=== PATIENT | female | born 2000 | race Two or more races ===

== ENCOUNTER 2024-04-27 10:21 | Outpatient (AMB) | payer MEDICAID, SELFPAY ==
--- NOTE | 2024-04-27 10:21 | ACNOTE_ITS ---
Allergies/Meds Allergies & Medications Allergies No Known Allergies Allergy (Verified 06/11/24 13:14) Medication Reconciliation buspirone 5 mg tablet 5 mg PO BID PRN anxiety #30 tabs 02/14/24 [Rx Confirmed 05/04/24] metoclopramide HCl 5 mg tablet (Reglan) 5 mg PO QDAY PRN nausea and vomiting #14 tabs 02/14/24 [Rx Confirmed 05/04/24] blood-glucose sensor (FreeStyle Alfred 3 Sensor device) #2 ea 04/27/24 [Rx Confirmed 05/04/24] metformin 1,000 mg tablet,extended release 24hr (osmotic) 1,000 mg PO BID #60 tabs 04/27/24 [Rx Confirmed 05/04/24] semaglutide 0.25 mg or 0.5 mg (2 mg/3 mL) subcutaneous pen injector 0.5 mg (0.736 mL) subcut QWEEK #6 mL 06/01/24 [Rx Confirmed 06/11/24] MA Intake Visit Data Collection New Patient or Established: Established Patient (seen at [facility] within 3 years) Seen by Clinical Staff ONLY (RN/MA): No Pain Present Currently: No Pain scale:: 0 Pain Scale Used: Sanchez-Nava/Numerical PCP or OBGYN visit in last 3 months: No Do You Feel Safe at Home: Yes Authorities Contacted: N/A Smoking Status Smoking Status: Never smoker For Televisit only Telemed Video/Phone Visit: Yes Verbal consent obtained for Telemed visit?: Yes Verbal Consent witness name: DANIELLE Telemed Video/Phone visit w/Clinical Staff: 21-30 min Immunization / Flu Flu Vaccine in the Last 12 Months: No Flu Vaccine Exclusion Criteria: No Exclusion Criteria Past Medical History Past Medical History NEUROLOGIC: Negative Neurological Disorders or Seizures CARDIAC: Negative Cardiac Disorders or Congestive Heart Failure RESPIRATORY: Negative Chronic Obstructive Pulmonary Disease (COPD) GASTROINTESTINAL: Negative Gastrointestinal Disorders GENITOURINARY: Negative Genitourinary Disorders or Renal Disease REPRODUCTIVE: Negative Pelvic Inflammatory Disease or Previous Pregnancies ENDOCRINE: Positive Endocrine Disorders; Negative Diabetes Mellitus Type 1 or Diabetes Mellitus Type 2 HEMATOLOGIC: Negative Blood Disorders or Anemia OTHER HISTORY: Negative Autoimmune Disease, Falls, Blood Transfusions, Blood Transfusion Reaction, Anesthesia Reactions or Cancer Family History FAMILY HISTORY: Negative Family Psychiatric Problems, Family Respiratory Disorders, Family Cardiac Disorders, Family Gastrointestinal Problems, Family Cancer, Family Surgery or Family Anesthesia Reaction Social History SMOKING STATUS: Smoking status: Never smoker ALCOHOL: Alcohol Intake: Current ALCOHOL FREQUENCY: Alcohol Intake Frequency: holidays/special occasions only HOUSING: Housing: House LIVES WITH: Lives With: Family and Significant Other Patient Portal Questionaires Social History Living Situation History Housing: House Housing Other:: Pt lives w/parents and SO Tobacco History Smoking Status: Never smoker Alcohol History Alcohol Intake: Current Alcohol Intake Frequency: holidays/special occasions only Domestic Abuse History Do You Feel Safe at Home: Yes Review of Systems Report any current symptoms Only answer those that you have currently: Past Medical History Past Medical History Have you ever been diagnosed with any of the following: Neurological Problems Seizures: No Cardiology Problems Congestive Heart Failure: No Respiratory Problems Chronic Obstructive Pulmonary Disease (COPD): No Genital/Urinary Problems Renal Disease: No Reproductive Problems Pelvic Inflammatory Disease: No Previous Pregnancies: No Endocrine Problems Diabetes Mellitus Type 1: No Diabetes Mellitus Type 2: No Blood Problems Anemia: No Other Problems Autoimmune Disease: No Falls: No Blood Transfusions: No Blood Transfusion Reaction: No Anesthesia Reactions: No Cancer: No History of Present Illness HPI Narrative 12/02/2023: This 23-year-old obese female being presented to the office with elevated blood sugar seen on glucometer around 240s. Patient also reported having occipital headaches and noticed elevated blood pressure at home around SBP 140s. Patient reported that she had GDM during her first 1year 8 months ago. Patient last menstrual cycle was 2 weeks ago. She recently started getting irregular menstrual period however does get menstruation every month. Ordered CBC, CMP, A1c and urinalysis. Prescribed metformin 500 mg daily and advised her to do urine test [beta-hCG qualitative] to rule out active . Was advised to start metformin only if she is not . Patient was advised to follow-up December 22. She was also advised to start exercise and take low carb consistent diet. She also have strong family history of diabetes. 12/16/2023: Patient came for follow-up for her lab results. Her A1c came 8 and blood sugars were elevated above 200. Thyroid functions were not drawn before they were repeated. Urine test was negative. UA showed glucosuria only. It was recommended to continue metformin 500 mg twice a day as patient has been tolerating it well. Encouraged on exercise and diet with low-fat consult. Patient will be follow-up on [place] 20 and in case of no weight loss considerable option was to start Rybelsus. Patient has been having irregular menstrual period from past 4-5 months. Pelvic ultrasound ordered. Will follow- up on thyroid functions. To rule out type 1 diabetes C-peptide test was ordered. Will follow-up on results. 02/14/2024: Patient came for follow-up. She reports that she has been having blood sugars in 180s after meals however had no weight loss reported in fact she had weight gain of 1 pound after using metformin for more than a month. She stated that her menstrual cycle has improved and has been regular now. She has been having personal stressor due to issues related to custody for her daughter and has been feeling anxious more than usual with sleep disturbances. [facility] revealed FT4 1.22 and TSH 0.731 and C-peptide 6.5 per 12/23/2023. Currently she weigh 220 lbs. plan is to uptitrate dose of metformin to 1000 mg twice a day, add buspirone 5 mg twice a day as needed for anxiety and added Rybelsus 3 mg once a day for weight loss. 04/27/2024: Patient new to me. 23 F with obesity and DMT2. Currently on metformin 1000mg BID. Has issues with ozempic prescriptions. Patient FBG is in he 170-180s. 05/04/2024: Patient had gestational diabetes and recently found out that she is diabetic. Patient also has family Hx with diabetes. She is currently on Metformin 1000 mg BID and started Ozempic x3 days ago on 05/01/24. Patient states that her fasting sugars in the 180's in morning and post-prandial are close to 200. Patient did not complete her lab work on last visit. Today she would like to know how to use the [employer] Alfred 3 GCM. The sensor was put on, patient was educated on how to use it including the kathrin. New lab for CBC, CMP and A1C were filled to be completed before next visit. No other concerns at this time. Review of Systems Review of Systems Systems Reviewed: All systems reviewed, normal except as documented Objective/Exam Narrative Physical exam: Telehealth visit. Able to speak full sentences. Assessment & Plan Diagnosis / Problem List (1) Diabetes: Status: Acute Assessment & Plan: unknown A1c FBG 180s Plan: -cont metformin 1000mg BID -start ozepmpic -CGM sent -A1c and labs orderd (2) Obesity (BMI 30-39.9): Status: Acute Assessment & Plan: see above Additional Assessment Attending note: I, Jase Sanon MD, attest that I was physically present for the rae portions of the service completed via telehealth, and I reviewed and discussed the case with the resident and agree with the resident's plans of care as documented above. Follow-up visit. Diabetes self-care reviewed including diet, exercise, footcare, eye care. Did titrate dose of metformin up to 1000 mg twice daily. Has not yet been able to obtain Ozempic. Fasting blood glucose levels remain high. Today we will order a CGM and attempt to get Ozempic approved. Repeat labs ordered. Jase Sanon MD Physician Billing Established Patient Established Patient: E/M Level 2-CPT 59104 Office Procedures [facility] Level of Care Nursing/Assessment Patient Status: Established Patient Nursing Assessment/Reassessment: Medication Reconciliation and Update PMH in EMR Coordination of Care: Complex Care and Chronic Disease 1-5, Education Complex Pt/Fam and Staff clarify orders Established Patient Charge Established Patient Point Assignment: 70 Telehealth Telemed Phone/Video with patient at home & Dr,PA,FISH SALTER: Yes
== END 2024-04-27 10:53 | disposition home or self-care (01) ==
LOC: HODAHC 10:21
PROVIDERS: PCP Student in an Organized Health Care Education/Training Program; Referring Provider Student in an Organized Health Care Education/Training Program; Supervising Provider Internal Medicine; Visit Provider Student in an Organized Health Care Education/Training Program
DX: E11.9 Type 2 diabetes mellitus without complications (principal); Z79.84 Long term (current) use of oral hypoglycemic drugs; E66.9 Obesity, unspecified
CPT/HCPCS: 99212; G0463

== ENCOUNTER 2024-06-01 14:28 | Outpatient (AMB) | payer MEDICAID, SELFPAY ==
[2024-06-01 14:22] VITALS: BP 115/73; PULSE 83; RESP 18; TEMP 36.2; O2SAT 98; BMI 37.6
--- NOTE | 2024-06-01 14:22 | PD.RESCLINIC ---
Vital Signs 06/01/24 14:22 Height 1.6 m Height Method Stated Weight 96.332 kg Weight Measurement Method Standing Scale BMI 37.6 BP 115/73 Blood Pressure Source Automatic Cuff Blood Pressure Location Left Upper Arm Position Sitting Respiration 18 Pulse 83 Pulse Source Monitor Temp 97.1 F Temp Source Oral Pulse Oximetry (%) 98 Oxygen Delivery Method Room Air Allergies/Meds Allergies & Medications Allergies No Known Allergies Allergy (Verified 06/11/24 13:14) Medication Reconciliation buspirone 5 mg tablet 5 mg PO BID PRN anxiety #30 tabs 02/14/24 [Rx Confirmed 05/04/24] metoclopramide HCl 5 mg tablet (Reglan) 5 mg PO QDAY PRN nausea and vomiting #14 tabs 02/14/24 [Rx Confirmed 05/04/24] blood-glucose sensor (FreeStyle Alfred 3 Sensor device) #2 ea 04/27/24 [Rx Confirmed 05/04/24] metformin 1,000 mg tablet,extended release 24hr (osmotic) 1,000 mg PO BID #60 tabs 04/27/24 [Rx Confirmed 05/04/24] semaglutide 0.25 mg or 0.5 mg (2 mg/3 mL) subcutaneous pen injector 0.5 mg (0.736 mL) subcut QWEEK #6 mL 06/01/24 [Rx Confirmed 06/11/24] MA Intake Visit Data Collection New Patient or Established: Established Patient (seen at [facility] within 3 years) Seen by Clinical Staff ONLY (RN/MA): No Pain Present Currently: No Pain scale:: 0 Traffic Officer Required: No PCP or OBGYN visit in last 3 months: Yes Do You Feel Safe at Home: Yes Authorities Contacted: N/A Smoking Status Smoking Status: Never smoker Immunization / Flu Flu Vaccine in the Last 12 Months: No Flu Vaccine Exclusion Criteria: Refused by Patient Past Medical History Past Medical History NEUROLOGIC: Negative Neurological Disorders or Seizures CARDIAC: Negative Cardiac Disorders or Congestive Heart Failure RESPIRATORY: Negative Chronic Obstructive Pulmonary Disease (COPD) GASTROINTESTINAL: Negative Gastrointestinal Disorders GENITOURINARY: Negative Genitourinary Disorders or Renal Disease REPRODUCTIVE: Negative Pelvic Inflammatory Disease or Previous Pregnancies ENDOCRINE: Positive Endocrine Disorders; Negative Diabetes Mellitus Type 1 or Diabetes Mellitus Type 2 HEMATOLOGIC: Negative Blood Disorders or Anemia OTHER HISTORY: Negative Autoimmune Disease, Falls, Blood Transfusions, Blood Transfusion Reaction, Anesthesia Reactions or Cancer Family History FAMILY HISTORY: Negative Family Psychiatric Problems, Family Respiratory Disorders, Family Cardiac Disorders, Family Gastrointestinal Problems, Family Cancer, Family Surgery or Family Anesthesia Reaction Social History SMOKING STATUS: Smoking status: Never smoker ALCOHOL: Alcohol Intake: Current ALCOHOL FREQUENCY: Alcohol Intake Frequency: holidays/special occasions only HOUSING: Housing: House LIVES WITH: Lives With: Family and Significant Other Patient Portal Questionaires Social History Living Situation History Housing: House Housing Other:: Pt lives w/parents and SO Tobacco History Smoking Status: Never smoker Alcohol History Alcohol Intake: Current Alcohol Intake Frequency: holidays/special occasions only Domestic Abuse History Do You Feel Safe at Home: Yes Review of Systems Report any current symptoms Only answer those that you have currently: Past Medical History Past Medical History Have you ever been diagnosed with any of the following: Neurological Problems Seizures: No Cardiology Problems Congestive Heart Failure: No Respiratory Problems Chronic Obstructive Pulmonary Disease (COPD): No Genital/Urinary Problems Renal Disease: No Reproductive Problems Pelvic Inflammatory Disease: No Previous Pregnancies: No Endocrine Problems Diabetes Mellitus Type 1: No Diabetes Mellitus Type 2: No Blood Problems Anemia: No Other Problems Autoimmune Disease: No Falls: No Blood Transfusions: No Blood Transfusion Reaction: No Anesthesia Reactions: No Cancer: No History of Present Illness HPI Narrative 12/02/2023: This 23-year-old obese female being presented to the office with elevated blood sugar seen on glucometer around 240s. Patient also reported having occipital headaches and noticed elevated blood pressure at home around SBP 140s. Patient reported that she had GDM during her first 1year 8 months ago. Patient last menstrual cycle was 2 weeks ago. She recently started getting irregular menstrual period however does get menstruation every month. Ordered CBC, CMP, A1c and urinalysis. Prescribed metformin 500 mg daily and advised her to do urine test [beta-hCG qualitative] to rule out active . Was advised to start metformin only if she is not . Patient was advised to follow-up December 22. She was also advised to start exercise and take low carb consistent diet. She also have strong family history of diabetes. 12/16/2023: Patient came for follow-up for her lab results. Her A1c came 8 and blood sugars were elevated above 200. Thyroid functions were not drawn before they were repeated. Urine test was negative. UA showed glucosuria only. It was recommended to continue metformin 500 mg twice a day as patient has been tolerating it well. Encouraged on exercise and diet with low-fat consult. Patient will be follow-up on February 13 and in case of no weight loss considerable option was to start Rybelsus. Patient has been having irregular menstrual period from past 4-5 months. Pelvic ultrasound ordered. Will follow-up on thyroid functions. To rule out type 1 diabetes C-peptide test was ordered. Will follow-up on results. 02/14/2024: Patient came for follow-up. She reports that she has been having blood sugars in 180s after meals however had no weight loss reported in fact she had weight gain of 1 pound after using metformin for more than a month. She stated that her menstrual cycle has improved and has been regular now. She has been having personal stressor due to issues related to custody for her daughter and has been feeling anxious more than usual with sleep disturbances. [facility] revealed FT4 1.22 and TSH 0.731 and C-peptide 6.5 per 12/23/2023. Currently she weigh 220 lbs. plan is to uptitrate dose of metformin to 1000 mg twice a day, add buspirone 5 mg twice a day as needed for anxiety and added Rybelsus 3 mg once a day for weight loss. 05/04/2024: Patient had gestational diabetes and recently found out that she is diabetic. Patient also has family Hx with diabetes. She is currently on Metformin 1000 mg BID and started Ozempic x3 days ago on 05/01/24. Patient states that her fasting sugars in the 180's in morning and post-prandial are close to 200. Patient did not complete her lab work on last visit. Today she would like to know how to use the [employer] Alfred 3 GCM. The sensor was put on, patient was educated on how to use it including the kathrin. New lab for CBC, CMP and A1C were filled to be completed before next visit. No other concerns at this time. 06/01/2024: Patient presented to the clinic for f/u. Patient is feeling well. Patient wanted to discussed medications options for diabetes and weightloss. Denies any complaints at this time. Review of Systems Review of Systems Systems Reviewed: All systems reviewed, normal except as documented Objective/Exam Narrative Physical exam: Constitutional: AOx3, able to speak full sentences HEENT: NC/AT, PERRLA, oral mucosa moist, neck supple CVS: RRR, S1-S2 present, no murmurs RESP: CTAB GI: non distended, non tender to palpation, NBS MSK: full ROM, no peripheral edema, peripheral pulses present Skin: warm and dry, no rashes Neuro: district branch manager II-XII grossly intact. Sensation grossly intact. Assessment & Plan Diagnosis / Problem List (1) Obesity (BMI 30-39.9): Status: Acute Assessment & Plan: stable Plan: -ozempic dosage increased to 0.5 (2) Diabetes: Status: Acute Qualifiers: Diabetes mellitus complication status: without complication Diabetes mellitus long distance billing operator insulin use: without long distance billing operator use Diabetes mellitus type: type 2 Qualified Code(s): E11.9 - Type 2 diabetes mellitus without complications Assessment & Plan: pending labs CGM reviewed ave glucose in 1 week was 160s Plan: -ozempic increased -cont other medications as prescribed - counseled on lifestyle modifications, diet and exercise Additional Assessment Attending note: I, Jase Sanon MD, attest that I was physically present for the rae portions of the service and evaluated the patient with the resident and I reviewed and discussed the case with the resident and agree with the resident's findings and plans of care as documented above. Follow up visit. Weight up just slightly in past month. Dose of Ozempic increased for glucose control and weight loss. Diet, exercise, foot care, eye care reviewed. Jase Sanon MD Physician Billing Established Patient Established Patient: E/M Level 3-CPT 75212 Office Procedures [facility] Level of Care Nursing/Assessment Patient Status: Established Patient Nursing Assessment/Reassessment: Medication Reconciliation, Update PMH in EMR and Vital Signs Coordination of Care: Complex Care and Chronic Disease 1-5, Consent,records obtained, informed consent, Education Simp Pt/Fam and Staff clarify orders Established Patient Charge Established Patient Point Assignment: 85 Established Patient Point Charge: EP Level 3 (80-115)
== END 2024-06-01 15:07 | disposition home or self-care (01) ==
LOC: HODAHC 14:28
PROVIDERS: PCP Student in an Organized Health Care Education/Training Program; Referring Provider Student in an Organized Health Care Education/Training Program; Supervising Provider Internal Medicine; Visit Provider Student in an Organized Health Care Education/Training Program
DX: E66.9 Obesity, unspecified (principal); Z68.37 Body mass index [BMI] 37.0-37.9, adult; E11.9 Type 2 diabetes mellitus without complications; Z79.84 Long term (current) use of oral hypoglycemic drugs; Z79.85 Long-term (current) use of injectable non-insulin antidiabetic drugs
CPT/HCPCS: 99213; G0463

== ENCOUNTER 2024-06-29 13:34 | Outpatient (AMB) | payer MEDICAID, SELFPAY ==
--- NOTE | 2024-06-29 13:51 | ACNOTE_ITS ---
Vital Signs 06/29/24 13:52 Height 1.6 m Height Method Stated Weight 94.404 kg Weight Measurement Method Standing Scale BMI 36.8 BP 113/66 Blood Pressure Source Automatic Cuff Blood Pressure Location Left Upper Arm Position Sitting Respiration 18 Pulse 100 Pulse Source Monitor Temp 98.3 F Temp Source Temporal Artery Scan Pulse Oximetry (%) 96 Oxygen Delivery Method Room Air Allergies/Meds Allergies & Medications Allergies No Known Allergies Allergy (Verified 06/29/24 13:52) Medication Reconciliation buspirone 5 mg tablet 5 mg PO BID PRN anxiety #30 tabs 02/14/24 [Rx Confirmed 06/29/24] metoclopramide HCl 5 mg tablet (Reglan) 5 mg PO QDAY PRN nausea and vomiting #14 tabs 02/14/24 [Rx Confirmed 06/29/24] blood-glucose sensor (FreeStyle Alfred 3 Sensor device) #2 ea 04/27/24 [Rx Co nfirmed 06/29/24] metformin 1,000 mg tablet,extended release 24hr (osmotic) 1,000 mg PO BID #60 tabs 04/27/24 [Rx Confirmed 06/29/24] semaglutide 0.25 mg or 0.5 mg (2 mg/3 mL) subcutaneous pen injector 0.5 mg (0.736 mL) subcut QWEEK #6 mL 06/01/24 [Rx Confirmed 06/29/24] MA Intake Visit Data Collection New Patient or Established: Established Patient (seen at [facility] within 3 years) Seen by Clinical Staff ONLY (RN/MA): Yes Pain Present Currently: No Pain scale:: 0 Pain Scale Used: Sanchez-Nava/Numerical Edi Developer Required: No PCP or OBGYN visit in last 3 months: Yes Hx Now: No Do You Feel Safe at Home: Yes Authorities Contacted: N/A Smoking Status Smoking Status: Never smoker Immunization / Flu Flu Vaccine in the Last 12 Months: No Flu Vaccine Exclusion Criteria: No Exclusion Criteria Past Medical History Past Medical History NEUROLOGIC: Negative Neurological Disorders or Seizures CARDIAC: Negative Cardiac Disorders or Congestive Heart Failure RESPIRATORY: Negative Chronic Obstructive Pulmonary Disease (COPD) GASTROINTESTINAL: Negative Gastrointestinal Disorders GENITOURINARY: Negative Genitourinary Disorders or Renal Disease REPRODUCTIVE: Negative Pelvic Inflammatory Disease or Previous Pregnancies ENDOCRINE: Positive Endocrine Disorders; Negative Diabetes Mellitus Type 1 or Diabetes Mellitus Type 2 HEMATOLOGIC: Negative Blood Disorders or Anemia OTHER HISTORY: Negative Autoimmune Disease, Falls, Blood Transfusions, Blood Transfusion Reaction, Anesthesia Reactions or Cancer Family History FAMILY HISTORY: Negative Family Psychiatric Problems, Family Respiratory Disorders, Family Cardiac Disorders, Family Gastrointestinal Problems, Family Cancer, Family Surgery or Family Anesthesia Reaction Social History SMOKING STATUS: Smoking status: Never smoker ALCOHOL: Alcohol Intake: Current ALCOHOL FREQUENCY: Alcohol Intake Frequency: holidays/special occasions only HOUSING: Housing: House LIVES WITH: Lives With: Family and Significant Other Patient Portal Questionaires Social History Living Situation History Housing: House Housing Other:: Pt lives w/parents and SO Tobacco History Smoking Status: Never smoker Alcohol History Alcohol Intake: Current Alcohol Intake Frequency: holidays/special occasions only Domestic Abuse History Do You Feel Safe at Home: Yes Review of Systems Report any current symptoms Only answer those that you have currently: Past Medical History Past Medical History Have you ever been diagnosed with any of the following: Neurological Problems Seizures: No Cardiology Problems Congestive Heart Failure: No Respiratory Problems Chronic Obstructive Pulmonary Disease (COPD): No Genital/Urinary Problems Renal Disease: No Reproductive Problems Pelvic Inflammatory Disease: No Previous Pregnancies: No Endocrine Problems Diabetes Mellitus Type 1: No Diabetes Mellitus Type 2: No Blood Problems Anemia: No Other Problems Autoimmune Disease: No Falls: No Blood Transfusions: No Blood Transfusion Reaction: No Anesthesia Reactions: No Cancer: No History of Present Illness HPI Narrative Encounter opened in error. Patient not seen on this date of service by physician. Assessment & Plan Additional Assessment Encounter opened in error. Patient not seen on this date of service by physician. Jase Sanon MD Office Procedures [facility] Level of Care Nursing/Assessment Patient Status: Established Patient Nursing Assessment/Reassessment: Medication Reconciliation, Update PMH in EMR and Vital Signs Coordination of Care: Consent,records obtained, informed consent and Staff clarify orders Established Patient Charge Established Patient Point Assignment: 45 Established Patient Point Charge: EP Level 2 (40-75)
[2024-06-29 13:52] VITALS: BP 113/66; PULSE 100; RESP 18; TEMP 36.8; O2SAT 96; BMI 36.8
== END 2024-06-29 15:30 | disposition home or self-care (01) ==
LOC: HODAHC 13:34
PROVIDERS: PCP Student in an Organized Health Care Education/Training Program; Referring Provider Student in an Organized Health Care Education/Training Program; Supervising Provider Internal Medicine; Visit Provider Student in an Organized Health Care Education/Training Program
DX: Z76.89 Persons encountering health services in other specified circumstances (principal)
CPT/HCPCS: 99212; 99213; G0463

== ENCOUNTER 2024-11-01 13:26 | Outpatient (AMB) | payer MEDICAID, SELFPAY ==
--- NOTE | 2024-11-01 13:52 | ACNOTE_ITS ---
Vital Signs 11/01/24 13:53 Height 1.6 m Height Method Stated Weight 95.311 kg Weight Measurement Method Standing Scale BMI 37.2 BP 121/76 Blood Pressure Source Automatic Cuff Blood Pressure Location Right Upper Arm Position Sitting Respiration 18 Pulse 74 Pulse Source Monitor Temp 97.8 F Temp Source Temporal Artery Scan Pulse Oximetry (%) 98 Oxygen Delivery Method Room Air Allergies/Meds Allergies & Medications Allergies No Known Allergies Allergy (Verified 11/01/24 13:55) Medication Reconciliation buspirone 5 mg tablet 5 mg PO BID PRN anxiety #30 tabs 02/14/24 [Rx Confirmed 11/01/24] metoclopramide HCl 5 mg tablet (Reglan) 5 mg PO QDAY PRN nausea and vomiting #14 tabs 02/14/24 [Rx Confirmed 11/01/24] metformin 1,000 mg tablet,extended release 24hr (osmotic) 1,000 mg PO BID #60 tabs 04/27/24 [Rx Confirmed 11/01/24] blood-glucose sensor (MeetCastStyle Alfred 3 Sensor device) #2 ea 11/01/24 [Rx Confirmed 11/01/24] semaglutide 1 mg/dose (4 mg/3 mL) subcutaneous pen injector (Ozempic) 1 mg (0.75 mL) subcut QWEEK #3 mL 11/01/24 [Rx Confirmed 11/01/24] MA Intake Visit Data Collection New Patient or Established: Established Patient (seen at [facility] within 3 years) Seen by Clinical Staff ONLY (RN/MA): No Pain Present Currently: No Pain scale:: 0 Pain Scale Used: Sanchez-Nava/Numerical Core Fitter Required: No PCP or OBGYN visit in last 3 months: No Hx Now: No Do You Feel Safe at Home: Yes Authorities Contacted: N/A Smoking Status Smoking Status: Never smoker Immunization / Flu Flu Vaccine in the Last 12 Months: No Flu Vaccine Exclusion Criteria: No Exclusion Criteria Past Medical History Past Medical History NEUROLOGIC: Negative Neurological Disorders or Seizures CARDIAC: Negative Cardiac Disorders or Congestive Heart Failure RESPIRATORY: Negative Chronic Obstructive Pulmonary Disease (COPD) GASTROINTESTINAL: Negative Gastrointestinal Disorders GENITOURINARY: Negative Genitourinary Disorders or Renal Disease REPRODUCTIVE: Negative Pelvic Inflammatory Disease or Previous Pregnancies ENDOCRINE: Positive Endocrine Disorders; Negative Diabetes Mellitus Type 1 or Diabetes Mellitus Type 2 HEMATOLOGIC: Negative Blood Disorders or Anemia OTHER HISTORY: Negative Autoimmune Disease, Falls, Blood Transfusions, Blood Transfusion Reaction, Anesthesia Reactions or Cancer Family History FAMILY HISTORY: Negative Family Psychiatric Problems, Family Respiratory Disorders, Family Cardiac Disorders, Family Gastrointestinal Problems, Family Cancer, Family Surgery or Family Anesthesia Reaction Social History SMOKING STATUS: Smoking status: Never smoker ALCOHOL: Alcohol Intake: Current ALCOHOL FREQUENCY: Alcohol Intake Frequency: holidays/special occasions only HOUSING: Housing: House LIVES WITH: Lives With: Family and Significant Other Patient Portal Questionaires Social History Living Situation History Housing: House Housing Other:: Pt lives w/parents and SO Tobacco History Smoking Status: Never smoker Alcohol History Alcohol Intake: Current Alcohol Intake Frequency: holidays/special occasions only Domestic Abuse History Do You Feel Safe at Home: Yes Review of Systems Report any current symptoms Only answer those that you have currently: Past Medical History Past Medical History Have you ever been diagnosed with any of the following: Neurological Problems Seizures: No Cardiology Problems Congestive Heart Failure: No Respiratory Problems Chronic Obstructive Pulmonary Disease (COPD): No Genital/Urinary Problems Renal Disease: No Reproductive Problems Pelvic Inflammatory Disease: No Previous Pregnancies: No Endocrine Problems Diabetes Mellitus Type 1: No Diabetes Mellitus Type 2: No Blood Problems Anemia: No Other Problems Autoimmune Disease: No Falls: No Blood Transfusions: No Blood Transfusion Reaction: No Anesthesia Reactions: No Cancer: No History of Present Illness HPI Narrative Patient is here for f/u. Patient is feeling well however patient is having difficulty losing weight. Review of Systems Review of Systems Systems Reviewed: All systems reviewed, normal except as documented Objective/Exam Narrative Physical exam: Constitutional: AOx3, able to speak full sentences HEENT: NC/AT, PERRLA, oral mucosa moist, neck supple CVS: RRR, S1-S2 present, no murmurs RESP: CTAB GI: non distended, non tender to palpation, NBS MSK: full ROM, no peripheral edema, peripheral pulses present Skin: warm and dry, no rashes Neuro: community outreach director II-XII grossly intact. Sensation grossly intact. Assessment & Plan Diagnosis / Problem List (1) Obesity (BMI 30-39.9): Status: Acute Assessment & Plan: stable Plan: -ozempic dosage increased to .75 mg injection (2) Diabetes: Status: Acute Qualifiers: Diabetes mellitus type: type 2 Diabetes mellitus intermediate accountant insulin use: without intermediate accountant use Diabetes mellitus complication status: without complication Qualified Code(s): E11.9 - Type 2 diabetes mellitus without complications Assessment & Plan: pending labs CGM reviewed ave glucose in 1 week was 130s Plan: -ozempic increased -cont other medications as prescribed - counseled on lifestyle modifications, diet and exercise Office Procedures [facility] Level of Care Nursing/Assessment Patient Status: Established Patient Nursing Assessment/Reassessment: Medication Reconciliation, Update PMH in EMR and Vital Signs Coordination of Care: Complex Care and Chronic Disease 1-5, Consent,records obtained, informed consent, Education Simp Pt/Fam and Staff clarify orders Established Patient Charge Established Patient Point Assignment: 85 Established Patient Point Charge: EP Level 3 (80-115)
[2024-11-01 13:53] VITALS: BP 121/76; PULSE 74; RESP 18; TEMP 36.6; O2SAT 98; BMI 37.2
== END 2024-11-01 14:16 | disposition home or self-care (01) ==
LOC: HODAHC 13:26
PROVIDERS: Supervising Provider Internal Medicine; Visit Provider Student in an Organized Health Care Education/Training Program
DX: E66.9 Obesity, unspecified (principal); Z68.37 Body mass index [BMI] 37.0-37.9, adult; E11.9 Type 2 diabetes mellitus without complications; Z79.85 Long-term (current) use of injectable non-insulin antidiabetic drugs; Z79.84 Long term (current) use of oral hypoglycemic drugs
CPT/HCPCS: 99213; G0463

== ENCOUNTER 2024-11-16 13:26 | Outpatient (AMB) | payer MEDICAID, SELFPAY ==
[2024-11-16 13:52] VITALS: BP 116/75; PULSE 83; RESP 18; TEMP 36.8; O2SAT 98; BMI 36.9
--- NOTE | 2024-11-16 13:52 | PD.RESCLINIC ---
Vital Signs 11/16/24 13:52 Height 1.6 m Height Method Stated Weight 94.574 kg Weight Measurement Method Standing Scale BMI 36.9 BP 116/75 Blood Pressure Source Automatic Cuff Blood Pressure Location Right Upper Arm Position Sitting Respiration 18 Pulse 83 Pulse Source Monitor Temp 98.2 F Temp Source Temporal Artery Scan Pulse Oximetry (%) 98 Oxygen Delivery Method Room Air Allergies/Meds Allergies & Medications Allergies No Known Allergies Allergy (Verified 11/16/24 13:53) Medication Reconciliation buspirone 5 mg tablet 5 mg PO BID PRN anxiety #30 tabs 02/14/24 [Rx Confirmed 11/16/24] blood-glucose sensor (FreeStyle Alfred 3 Sensor device) #2 ea 11/16/24 [Rx] metformin 1,000 mg tablet,extended release 24hr (osmotic) 1,000 mg PO QPM #30 tabs 11/16/24 [Rx] metoclopramide HCl 5 mg tablet (Reglan) 5 mg PO QDAY PRN nausea and vomiting #14 tabs 11/16/24 [Rx] semaglutide 1 mg/dose (4 mg/3 mL) subcutaneous pen injector (Ozempic) 1 mg (0.75 mL) subcut QWEEK #3 mL 11/16/24 [Rx] MA Intake Visit Data Collection New Patient or Established: Established Patient (seen at [facility] within 3 years) Seen by Clinical Staff ONLY (RN/MA): No Pain Present Currently: No Pain scale:: 0 Pain Scale Used: Sanchez-Nava/Numerical Senior Safety Support Manager Required: No PCP or OBGYN visit in last 3 months: Yes Do You Feel Safe at Home: Yes Authorities Contacted: N/A Smoking Status Smoking Status: Never smoker Immunization / Flu Flu Vaccine in the Last 12 Months: No Flu Vaccine Exclusion Criteria: Refused by Patient Past Medical History Past Medical History NEUROLOGIC: Negative Neurological Disorders or Seizures CARDIAC: Negative Cardiac Disorders or Congestive Heart Failure RESPIRATORY: Negative Chronic Obstructive Pulmonary Disease (COPD) GASTROINTESTINAL: Negative Gastrointestinal Disorders GENITOURINARY: Negative Genitourinary Disorders or Renal Disease REPRODUCTIVE: Negative Pelvic Inflammatory Disease or Previous Pregnancies ENDOCRINE: Positive Endocrine Disorders; Negative Diabetes Mellitus Type 1 or Diabetes Mellitus Type 2 HEMATOLOGIC: Negative Blood Disorders or Anemia OTHER HISTORY: Negative Autoimmune Disease, Falls, Blood Transfusions, Blood Transfusion Reaction, Anesthesia Reactions or Cancer Family History FAMILY HISTORY: Negative Family Psychiatric Problems, Family Respiratory Disorders, Family Cardiac Disorders, Family Gastrointestinal Problems, Family Cancer, Family Surgery or Family Anesthesia Reaction Social History SMOKING STATUS: Smoking status: Never smoker ALCOHOL: Alcohol Intake: Current ALCOHOL FREQUENCY: Alcohol Intake Frequency: holidays/special occasions only HOUSING: Housing: House LIVES WITH: Lives With: Family and Significant Other Patient Portal Questionaires Social History Living Situation History Housing: House Housing Other:: Pt lives w/parents and SO Tobacco History Smoking Status: Never smoker Alcohol History Alcohol Intake: Current Alcohol Intake Frequency: holidays/special occasions only Domestic Abuse History Do You Feel Safe at Home: Yes Review of Systems Report any current symptoms Only answer those that you have currently: Past Medical History Past Medical History Have you ever been diagnosed with any of the following: Neurological Problems Seizures: No Cardiology Problems Congestive Heart Failure: No Respiratory Problems Chronic Obstructive Pulmonary Disease (COPD): No Genital/Urinary Problems Renal Disease: No Reproductive Problems Pelvic Inflammatory Disease: No Previous Pregnancies: No Endocrine Problems Diabetes Mellitus Type 1: No Diabetes Mellitus Type 2: No Blood Problems Anemia: No Other Problems Autoimmune Disease: No Falls: No Blood Transfusions: No Blood Transfusion Reaction: No Anesthesia Reactions: No Cancer: No History of Present Illness HPI Narrative Patient presented today for f/u with labs. Patient is feeling well, she is exercising and eating better. Denies any other symptoms at this time. Review of Systems Review of Systems Systems Reviewed: All systems reviewed, normal except as documented Objective/Exam Narrative Physical exam: Constitutional: AOx3, able to speak full sentences HEENT: NC/AT, PERRLA, oral mucosa moist, neck supple CVS: RRR, S1-S2 present, no murmurs RESP: CTAB GI: non distended, non tender to palpation, NBS MSK: full ROM, no peripheral edema, peripheral pulses present Skin: warm and dry, no rashes Neuro: train announcer II-XII grossly intact. Sensation grossly intact. Assessment & Plan Diagnosis / Problem List (1) Obesity (BMI 30-39.9): Status: Acute Assessment & Plan: stable Plan: -ozempic dosage increased to .75 mg injection (2) Diabetes: Status: Acute Qualifiers: Diabetes mellitus type: type 2 Diabetes mellitus exterminator helper termite insulin use: without exterminator helper termite use Diabetes mellitus complication status: without complication Qualified Code(s): E11.9 - Type 2 diabetes mellitus without complications Assessment & Plan: Recent A1c 10/2024 was 6.4% CGM reviewed ave glucose in 1 week was 110s Plan: -ozempic increased -cont other medications as prescribed - counseled on lifestyle modifications, diet and exercise Office Procedures [facility] Level of Care Nursing/Assessment Patient Status: Established Patient Nursing Assessment/Reassessment: Medication Reconciliation, Update PMH in EMR and Vital Signs Coordination of Care: Complex Care and Chronic Disease 1-5, Education Complex Pt/Fam, Consent,records obtained, informed consent, Education Simp Pt/Fam, Results/Orders obtained and Staff clarify orders Established Patient Charge Established Patient Point Assignment: 110 Established Patient Point Charge: EP Level 3 (80-115)
== END 2024-11-16 14:18 | disposition home or self-care (01) ==
LOC: HODAHC 13:26
PROVIDERS: Supervising Provider Internal Medicine; Visit Provider Student in an Organized Health Care Education/Training Program
DX: E11.9 Type 2 diabetes mellitus without complications (principal); E66.9 Obesity, unspecified; Z68.36 Body mass index [BMI] 36.0-36.9, adult; Z79.84 Long term (current) use of oral hypoglycemic drugs; Z79.85 Long-term (current) use of injectable non-insulin antidiabetic drugs
CPT/HCPCS: 99213; G0463